=== PATIENT | female | born 1970 | race Caucasian/White ===

== ENCOUNTER → 2017-10-23 | Outpatient (CLI) | payer MEDICARE, MEDICAID ==
--- NOTE | 2017-10-23 19:28 | Diagnostic Imaging Report ---
INDICATION: Bilateral breast pain as well as bilateral milky nipple discharge. Patient also reports right nipple retraction. Correlation is made with prior exam from 04/29/2015. 2-D and 3-D bilateral diagnostic mammography was performed including conventional CC and MLO views as well as exaggerated CC views. Spot compression CC on the right as well as rolled CCs on the right were also performed. The current study was also evaluated with a Computer Aided Detection (CAD) system. FINDINGS: Moderate density is noted bilaterally. No discrete mass or malignant-appearing microcalcifications are seen. There was a density in the medial right breast retroareolar region on the CC view which was spotted and additional views obtained. No underlying abnormality is identified. The axillae are unremarkable. IMPRESSION: No mammographic features suspicious for malignancy are identified. However, sonographic interrogation of the retroareolar regions bilaterally is recommended due to bilateral nipple discharge and nipple retraction on the right. ACR BI-RADS Category 0: Incomplete. (Needs additional imaging evaluation). Result letter will be mailed to the patient. Note: At least 10% of breast cancer is not imaged by mammography. Dictated by: Dictated on workstation # [id number]
--- NOTE | 2017-10-23 19:38 | Diagnostic Imaging Report ---
INDICATION: Bilateral breast pain as well as bilateral nipple discharge and right nipple inversion. FINDINGS: Sonographic interrogation of the retroareolar regions of both breasts was performed. No solid or cystic mass is identified. No sonographic abnormality is seen. IMPRESSION: No sonographic abnormality is identified. Continued clinical followup is recommended. ACR BI-RADS Category 2: Benign findings. Dictated by: Dictated on workstation # [id number]
== END ==
LOC: RAD 13:21
PROVIDERS: ATTEND Family Medicine
DX: N64.52 Nipple discharge (principal); N64.53 Retraction of nipple; N64.4 Mastodynia
CPT/HCPCS: 76642; 77066